=== PATIENT | male | born 1970 ===

== ENCOUNTER 2024-04-15 08:39 | Outpatient (CLI) | payer OTHER, SELFPAY ==
--- NOTE | ~2024-04-15 | MR_ITS ---
MRI of the right knee Clinical history: Osteoarthritis Technique: Coronal proton density and proton density-weighted images, sagittal proton-density and T2 fat-sat images, and axial proton-density fat-saturated images were acquired. Findings: Anterior and posterior cruciate ligaments are intact. Medial collateral ligament and the la teral collateral ligament complex are intact. Popliteus tendon is intact. There is complex tearing of the posterior horn and body of the medial meniscus, which are markedly di minutive and somewhat macerated. No lateral meniscal tear seen. There is grade 4 chondral lesion both sides of the medial compartment near the medial joint line. The re is reactive subchondral marrow edema in the medial tibial plateau. Articular cartilage in the cancino llofemoral and lateral compartments is well preserved. Extensor mechanism is intact. Small to moderate joint effusion present. Moderate Romero's cyst present . Impression: Complex tearing of the posterior horn and body medial meniscus, as detailed above. Moderate to advanced degenerative change of the medial compartment. Probable reactive marrow edema in the medial tibial plateau. No definite subchondral insufficiency fracture evident at this time. Small to moderate joint effusion with moderate Romero's cyst. Reviewed, dictated and finalized at location . Impression: Complex tearing of the posterior horn and body medial meniscus, as detailed abo ve. Moderate to advanced degenerative change of the medial compartment. Probable re active marrow edema in the medial tibial plateau. No definite subchondral insuf ficiency fracture evident at this time. Small to moderate joint effusion with moderate Romero's cyst.
== END 2024-04-15 08:40 ==
LOC: GOSHIMG 08:43
PROVIDERS: PCP Internal Medicine; Visit Provider Orthopaedic Surgery
DX: M17.11 Unilateral primary osteoarthritis, right knee (principal); S83.231A Complex tear of medial meniscus, current injury, right knee, initial encounter; M25.461 Effusion, right knee; M71.21 Synovial cyst of popliteal space [Baker], right knee
CPT/HCPCS: 73721